=== PATIENT | male | born 1985 | race Asian ===

== ENCOUNTER 2017-01-06 12:07 | Emergency (ER) | payer MEDICAID ==
[2017-01-06 12:14] VITALS: BP 124/80
[2017-01-06] MEDS ORDERED: LIDOCAINE 1% 2 ML VIAL ONE (12:37)
[2017-01-06] MEDS ORDERED: TETANUS/DIPHTHERIA/PERTUSSIS 0.5 ML SYRINGE IM ONE ×2 (12:46→12:47)
--- NOTE | 2017-01-06 12:47 | ED Physician Documentation ---
PD HPI UPPER EXT INJURY - Stated complaint Stated Complaint: LT FINGER LAC - Chief complaint Chief Complaint: Laceration - History obtained from History obtained from: Patient - History of Present Illness Location: Left, Finger (3rd) Type of injury: Laceration Where injury occurred: Home Timing - onset: How many hours ago (1) Timing - duration: Hours (1) Timing - details: Abrupt onset Pain level max: 2 Pain level now: 2 Improved by: Immobilization Worsened by: Moving, Palpating Associated symptoms: No: Weakness, Numbness, Tingling, Swelling Contributing factors: No: Anticoagulated - Additonal information Additional information: was working in the backyard and cut his finger on something. unknown last Td shot. Review of Systems Neurologic: denies: Focal weakness, Numbness PD PAST MEDICAL HISTORY - Past Medical History Past Medical History: Yes Respiratory: Asthma Psych: Depression - Past Surgical History Past Surgical History: Yes HEENT: Myringotomy (tubes) - Present Medications Home Medications: Ambulatory Orders Medication Instructions Recorded Confirmed No Known Home Medications [No 01/06/17 01/06/17 Known Home Medications] - Allergies Allergies/Adverse Reactions: Allergies Allergy/AdvReac Type Severity Reaction Status Date / Time amoxicillin Allergy Rash Verified 01/06/17 12:15 - Social History Does the pt smoke?: Yes Smoking Status: Current every day smoker Does the pt drink ETOH?: Yes Does the pt have substance abuse?: No - Immunizations Immunizations are current?: No Immunizations: TDAP >10years/unknown - POLST Patient has POLST: No PD ED PE NORMAL - Vitals Vital signs reviewed: Yes - General General: Alert and oriented X 3, No acute distress - Derm Derm: Warm and dry - Neuro Neuro: Alert and oriented X 3 - Psych Psych: Normal mood, Normal affect PD ED PE EXPANDED - Extremities NYASIA UE/Hands Visual: 1 - laceration (subcutaneous, flap, NVI. 1cm, curved.) Results - Vitals Vitals: Vital Signs - 24 hr 01/06/17 12:10 Temperature 36.4 C L Heart Rate 90 Respiratory 18 Rate Blood Pressure 124/80 O2 Saturation 99 Oxygen O2 Source Room air Procedures - Laceration (location) L 3rd digit Length in cm: 1 Wound type: Flap, Into subcut fat, Clean Neurovascular status: Sensory intact, Motor intact, Vascular intact Tendon involvement: Tendon intact Wound Preparation: Hibiclens, Irrigated copiously NS (250ml), Wound explored, To the base. No: FB identified Skin layer closure: Dermabond Other: Patient tolerated well, No complications, Neurovascular intact, Dressing applied (finger cage), Tetanus booster given Complexity: Simple PD MEDICAL DECISION MAKING - ED course Complexity details: considered differential, d/w patient ED course: Patient is a 31-year-old male with a laceration to the left third digit. This is flap-like in nature, superficial. On the tip of the finger. No active bleeding. Dermabond applied. Finger cage placed over the wound. Tdap given. Warnings of infection and instructions on wound care given at bedside. Also counseled on how to minimize scarring. Patient counseled regarding signs and symptoms for which I believe and urgent re-evaluation would be necessary. Patient with good understanding of and agreement to plan and is comfortable going home at this time This document was made in part using voice recognition software. While efforts are made to proofread this document, sound alike and grammatical errors may occur. Departure - Departure Disposition: 01 Home, Self Care Clinical Impression: Finger laceration Qualifiers: Encounter type: initial encounter Qualified Code(s): S61.219A - Laceration without foreign body of unspecified finger without damage to nail, initial encounter Condition: Good Instructions: ED Laceration Hand Follow-Up: your,doctor in 1 week [Other] Comments: Keep the wound clean and dry. Return if you worsen. Wear the finger cage for the next 3-4 days.
== END 2017-01-06 13:10 | disposition home or self-care (01) ==
LOC: ED 12:07
DX: S61.213A Laceration without foreign body of left middle finger without damage to nail, initial encounter (principal); W45.8XXA Other foreign body or object entering through skin, initial encounter; Y92.007 Garden or yard of unspecified non-institutional (private) residence as the place of occurrence of the external cause; Z23 Encounter for immunization; F17.200 Nicotine dependence, unspecified, uncomplicated
CPT/HCPCS: 12001; 90471; 99282; 99283

== ENCOUNTER 2020-07-11 10:11 | Outpatient (CLI) | payer BC | END 2020-07-11 10:12 | disposition home or self-care (01) | LOC: COV 10:11 | PROVIDERS: ATTEND Family Medicine | DX: Z20.828 Contact with and (suspected) exposure to other viral communicable diseases (principal) ==

== ENCOUNTER 2022-12-25 16:48 | Outpatient (CLI) | payer OTHER ==
--- NOTE | 2022-12-26 09:20 | Ultrasound Report ---
PROCEDURE: Retroperitoneal INDICATIONS: HX OF RENAL CYST TECHNIQUE: Real-time scanning was performed of the retroperitoneal organs, with image documentation. COMPARISON: None available time of dictation. FINDINGS: Kidneys: Kidneys are normal in size. Right kidney measures 10.4 cm long; left kidney measures 11.1 cm long. Right renal cortical thickness is 1.4 cm; left renal cortical thickness is 1.6 cm. No irene d masses, hydronephrosis, or nephrolithiasis. Bladder: Pre-void bladder volume is 526 mL. Post-void residual is 11 mL. Pre-void images demonstra te no intraluminal masses or stones. On pre-void images, both ureteral jets are noted with color Dop pler interrogation. (Of note, ureteral jets may not be detectable in up to 25% of cases due to insuf ficient differences in specific gravity between ureteral and bladder urine). Miscellaneous: No free abdominal fluid. IMPRESSION: No renal cysts appreciated. Reviewed by: Roger Cazares on 12/26/2022 9:19 AM PDT Approved by: Roger Cazares on 12/26/2022 9:19 AM PDT Station ID: [id number]
== END 2022-12-25 16:49 | disposition home or self-care (01) ==
LOC: DI 16:48
PROVIDERS: ATTEND Internal Medicine
DX: Z87.448 Personal history of other diseases of urinary system (principal)